=== PATIENT | female | born 1945 | race Caucasian/White ===

== ENCOUNTER → 2017-10-02 | Outpatient (CLI) | payer OTHER ==
[2012-12-03 10:03] VITALS: BP 116/52
--- NOTE | 2017-10-02 15:35 | US ---
HISTORY: Prior history of left breast carcinoma status post lumpectomy with new left axillary and la teral breast lumps Bilateral digital diagnostic mammography with CAD and left breast ultrasound. Comparison: Multiple priors dating back to February 27, 2015 FINDINGS: Mammogram: Bilateral CC and MLO projections of the right and left breast were obtained. Scattered fi broglandular tissue is seen to be present without significant interval change. No new or developing suspicious architectural distortion, mass or clustered microcalcifications can be observed to suggest malignancy. No skin thickening or nipple retraction is appreciated. No pathological lymphadenopat hy can be identified. Benign-appearing calcifications are noted within the right and left breast. The re are stable postsurgical changes on the left. Ultrasound: Multiple grayscale images of the left breast and axillary tail were obtained from 1-5 o'c lock. There are no suspicious cystic or solid nodules. No pathologic lymphadenopathy is identified. T here are no focal fluid collections. IMPRESSION: NO RADIOGRAPHIC EVIDENCE OF MALIGNANCY. ACR CATEGORY 2 - benign findings. FOLLOW-UP EXAM 1 YEAR. Diagnostic CAD was utilized and reviewed. * 0 (ZERO) - ASSESSMENT INCOMPLETE; ADDITIONAL IMAGING IS NEEDED. * 1/1 (ONE) - NEGATIVE. * 2/II (TWO) - BENIGN FINDINGS. * 3/III (THREE) - PROBABLY BENIGN FINDING; SHORT INTERVAL FOLLOW-UP SUGGESTED. * 4/IV (FOUR) - SUSPICIOUS ABNORMALITY; BIOPSY SHOULD BE CONSIDERED. * 5/V - HIGHLY SUSPICIOUS OF MALIGNANCY; BIOPSY SHOULD BE PERFORMED. A NEGATIVE X-RAY REPORT SHOULD NOT DELAY BIOPSY IF A DOMINANT OR CLINICALLY SUSPICIOUS MASS IS PRESENT; 4 TO 8 PERCENT OF CANCERS ARE NOT IDENTIFIED BY X-RAY. A NEGA TIVE REPORT MAY REINFORCE THE CLINICAL IMPRESSION. ADENOSIS AND DENSE BREASTS MAY OBSCURE AN UNDERLY ING NEOPLASM. Reported By:
== END ==
LOC: RAD 13:24
PROVIDERS: ATTEND Specialist
DX: N64.4 Mastodynia (principal); Z85.3 Personal history of malignant neoplasm of breast
CPT/HCPCS: 76642; 77066